=== PATIENT | male | born 1990 | race Two or more races ===

== ENCOUNTER 2020-02-22 21:42 | Emergency (ER) | payer OTHER ==
[2020-02-22] MEDS ORDERED: ASPIRIN 81 MG CHEWABLE TABLETS PO ONE (21:50)
--- NOTE | 2020-02-22 21:50 | PDOC ---
Rapid Medical Evaluation Time Seen by Provider: 02/22/20 21:46 Medical Evaluation: 02/22/20 21:47 I have performed a brief in-person evaluation of this patient. CC: chest pain s/p crack cocaine use; PMHx- schizophrenia PE: HR-55. Regular HR. No m/r/g. Lungs CTAB. Orders: cardiac w/u Patient will proceed to ED for further evaluation. Discharge Disposition - Diagnosis Chest pain - Referrals - Patient Instructions - Post Discharge Activity
[2020-02-22 21:51] VITALS: TEMP 98.5; BMI 20.5
--- NOTE | 2020-02-22 22:22 | PDOC ---
History of Present Illness - General Chief Complaint: Chest Pain Stated Complaint: CHEST PAIN Time Seen by Provider: 02/22/20 21:46 History Source: Patient Exam Limitations: No Limitations - History of Present Illness Initial Comments: 02/22/20 22:21 29yM w PMHx schizophrenia, polysubstance abuse (cocaine, THC, tobacco) presenting w 2wk persistent mild R chest tenderness. Not associated w exertion/position. Didn't take any meds for symptoms. Last used drugs yesterday. Denies fever, cough, n/v, SOB, HI/SI, hallucinations Past History - Medical History Allergies/Adverse Reactions: Allergies Allergy/AdvReac Type Severity Reaction Status Date / Time No Known Allergies Allergy Verified 02/22/20 21:51 COPD: No Psychiatric Problems: Yes (SCHIZOPHRENIA) - Psycho-Social/Smoking History Smoking History: Current every day smoker Number of Cigarettes Smoked Daily: 10 Information on smoking cessation initiated: Yes - Substance Abuse Hx (Audit-C & DAST Scrn) How often the patient has a drink containing alcohol: 2-3 times / week Number of drinks the patient has on a typical day: 1 or 2 How often the patient has six or more drinks on one occasion: Daily or almost daily Score: In Men: 4 or > Positive; In Women: 3 or > Positive: 7 Screen Result (Pos requires Nsg. Audit-10AR): Positive In the last yr the pt used illegal drug/Rx for NonMed reason: Yes Score: Yes response is considered Positive: 1 Screen Result (Positive result requires Nsg. DAST-10): Positive Review of Systems - Review of Systems Constitutional: No: Chills, Fever HEENTM: No: Eye Pain, Nose Congestion Respiratory: No: Cough, Shortness of Breath Cardiac (ROS): Yes: Chest Pain. No: Palpitations ABD/GI: No: Constipated, Diarrhea : No: Burning, Dysuria Musculoskeletal: No: Back Pain, Joint Pain Integumentary: No: Bruising, Flushing Neurological: No: Headache, Seizure Psychiatric: No: Anxiety, Depression Endocrine: No: Intolerance to Cold, Intolerance to Heat Hematologic/Lymphatic: No: Anemia, Blood Clots *Physical Exam - Vital Signs Last Vital Signs Temp Pulse Resp BP Pulse Ox 98.5 F 61 18 118/70 100 02/22/20 21:44 02/23/20 00:03 08/12/20 00:03 02/23/20 00:03 02/23/20 00:03 - Physical Exam General Appearance: Yes: Nourished, Appropriately Dressed. No: Apparent Distress HEENT: positive: EOMI, ESTHER, Normal Voice, Hearing Grossly Normal. negative: Scleral Icterus (R), Scleral Icterus (L) Respiratory/Chest: positive: Chest Tender (R chest), Lungs Clear, Normal Breath Sounds. negative: Respiratory Distress, Accessory Muscle Use, Labored Respiration, Crackles, Rales, Rhonchi, Stridor, Wheezing Cardiovascular: positive: Regular Rhythm, S1, S2, Bradycardia. negative: Murmur Gastrointestinal/Abdominal: positive: Normal Bowel Sounds, Flat, Soft. negative: Tender, Organomegaly Integumentary: positive: Normal Color, Warm. negative: Dry Neurologic: positive: Fully Oriented, Alert, Normal Mood/Affect, Normal Response, Responsive Heart Score/ECG Review - History History: Slightly suspicious - Electrocardiogram EKG: Normal - Age Age: </= 45 - Risk Factors Risk Factors Heart Score: No Hx Hypercholesterolemia, No Hx Hypertension, No Hx Diabetes, Yes Smoking History, No Positive family hx of cardiac disease, No Hx Obesity Based on the list above the patient has:: 1-2 risk factors - Troponin Troponin: </= normal limit - Score Heart Score - Total: 1 ED Treatment Course - LABORATORY CBC & Chemistry Diagram: 02/22/20 21:57 02/22/20 21:58 - ADDITIONAL ORDERS Additional order review: Laboratory Results 02/22/20 21:58 Sodium 142 Potassium 3.9 Chloride 108 H Carbon Dioxide 24 Anion Gap 10 BUN 12.8 Creatinine 0.9 Est GFR (CKD-EPI)AfAm 132.37 Est GFR (CKD-EPI)NonAf 114.21 Random Glucose 98 Calcium 8.5 Magnesium 2.2 Total Bilirubin 0.3 AST 15 ALT 18 Alkaline Phosphatase 65 Creatine Kinase 133 Troponin I < 0.02 Total Protein 6.1 L Albumin 3.4 02/22/20 21:57 RBC 4.37 MCV 88.8 MCHC 33.5 RDW 13.5 MPV 8.5 Neutrophils % 52.4 Lymphocytes % 36.6 Monocytes % 8.7 Eosinophils % 1.7 Basophils % 0.6 - Medications Given in the ED: ED Medications Discontinued Medications Generic Name Dose Route Start Last Admin Trade Name Freq PRN Reason Stop Dose Admin Aspirin 325 mg 02/22/20 21:50 02/22/20 22:45 Asa - PO 02/22/20 21:51 325 mg ONCE ONE Administration Medical Decision Making - Medical Decision Making 02/22/20 22:59 EKG - sinus bradycardia w arrhythmia, R axis deviation, no ST changes, HR 51, QTc 374 CXR - clear lung bolivar, normal cardiac size --- 29yM w PMHx schizophrenia, polysubstance abuse (cocaine, THC, tobacco) presenting w 2wk persistent mild R chest tenderness. Costochondritis. Low concern for ACS (neg trop, no ST changes) vs PNA (clear lungs) Given aspirin HEART 1 Called [facility] - they don't admit for cocaine, THC abuse, instead outpatient therapy w [facility] DC home w PCP, cards referrals, supportive care, outpatient Discharge - Discharge Information Problems reviewed: Yes Clinical Impression/Diagnosis: Costochondritis Condition: Improved Disposition: HOME - Follow up/Referral Referrals: Cortez Farrar MD [Staff Physician] - Dionisio Bran MD [Staff Physician] - - Patient Discharge Instructions Patient Printed Discharge Instructions: DI for Costochondritis Additional Instructions: Your workup did not show anything concerning Stop taking cocaine, cigarettes, and marijuana Take tylenol or ibuprofen if you have pain Please call [facility] for outpatient treatment for your drug abuse Follow up with the referred primary care Dr Farrar and accounts payable specialist Dr Bran - Post Discharge Activity
[2020-02-22 22:31] LABS: BASO % 0.6 % (0-2.0); EOS % 1.7 % (0-4.5); HEMATOCRIT 38.8 % (35.4-49); LYMPH % 36.6 % (8-40); MCH 29.7 pg (25.7-33.7); MCHC 33.5 g/dl (32.0-35.9); MEAN CELL VOLUME 88.8 fl (80-96); MEAN PLT VOLUME 8.5 fl (7.5-11.1); MONO % 8.7 % (3.8-10.2); NEUT % 52.4 % (42.8-82.8); PLATELET COUNT 197 K/MM3 (134-434); RBC 4.37 M/mm3 (4.00-5.60); RDW 13.5 % (11.9-15.9); WHITE BLOOD COUNT 6.4 K/mm3 (4.0-10.0)
[2020-02-22] MEDS ORDERED: ASPIRIN 81 MG CHEWABLE TABLETS ONE (22:32)
--- NOTE | 2020-02-22 22:43 | PDOC ---
Documentation entered by Olimpia Haile SCRIBE, acting as scribe for Jennifer Crews MD. Jennifer Crews MD: This documentation has been prepared by the deandraibeMic Ana, SCRIBE, under my direction and personally reviewed by me in its entirety. I confirm that the documentation accurately reflects all work, treatment, procedures, and medical decision making performed by me. Attending Attestation - Resident Resident Name: Jose Wall - ED Attending Attestation I have performed the following: I have examined & evaluated the patient, The case was reviewed & discussed with the resident, I agree w/resident's findings & plan, Exceptions are as noted - HPI HPI: 02/22/20 22:31 Patient is a 29 year old male with a significant past medical history of schizophrenia and substance abuse (crack) who presents to the ED with two weeks of right sided chest pain.. Patient denies: Allergies: NKDA 02/22/20 22:39 - Physicial Exam PE: 02/22/20 22:39 29 yo male p/w 2 weeks of right sided chest pain head ncat eyes taco eomi lungs cta b/l cvs [id number] abdomen nontendner extremities no edema skin warm and dry neuro axox3,ambulatory - Medical Decision Making 02/22/20 23:20 EKG is sinus bradycardia at 51 bpm troponin is negative cxr napd,normal cardiac silhouette imp musculoskeletal pain Discharge - Discharge Information Problems reviewed: Yes Clinical Impression/Diagnosis: Costochondritis Condition: Improved Disposition: HOME - Follow up/Referral Referrals: Cortez Farrar MD [Staff Physician] - Dionisio Bran MD [Staff Physician] - - Patient Discharge Instructions Patient Printed Discharge Instructions: DI for Costochondritis Additional Instructions: Your workup did not show anything concerning Stop taking cocaine, cigarettes, and marijuana Take tylenol or ibuprofen if you have pain Please call [facility] for outpatient treatment for your drug abuse Follow up with the referred primary care Dr Farrar and floor cleaner Dr Bran - Post Discharge Activity
[2020-02-22 23:01] LABS: ALBUMIN 3.4 g/dl (3.4-5.0); ALK PHOS 65 U/L (45-117); ANION GAP 10 MMOL/L (8-16); BILIRUBIN,TOTAL 0.3 mg/dL (0.2-1); BLOOD UREA NITROGEN 12.8 mg/dL (7-18); CALCIUM 8.5 mg/dL (8.5-10.1); CHLORIDE 108 mmol/L (98-107); CO2 24 mmol/L (21-32); CREATININE 0.9 mg/dL (0.55-1.3); GLUCOSE,RANDOM 98 mg/dL (74-106); MAGNESIUM 2.2 mg/dL (1.8-2.4); POTASSIUM 3.9 mmol/L (3.5-5.1); SGOT/AST 15 U/L (15-37); SGPT/ALT 18 U/L (13-61); SODIUM 142 mmol/L (136-145); TOT PROT 6.1 g/dl (6.4-8.2)
[2020-02-23 00:04] VITALS: BP 118/70; PULSE 61
--- NOTE | 2020-02-23 13:14 | EKG ---
Test Reason : Blood Pressure : / mmHG Vent. Rate : 051 BPM Atrial Rate : 051 BPM P-R Int : 134 ms QRS Dur : 084 ms QT Int : 406 ms P-R-T Axes : 074 090 071 degrees QTc Int : 374 ms SINUS BRADYCARDIA WITH SINUS ARRHYTHMIA RIGHTWARD AXIS BORDERLINE ECG NO PREVIOUS ECGS AVAILABLE Confirmed by MD TESSY, GARRY ([id number]) on 02/23/2020 1:14:09 PM Referred By: Confirmed By:GARRY STILL MD
== END 2020-02-23 00:06 | disposition home or self-care (01) ==
LOC: JER 21:42
DX: M94.0 Chondrocostal junction syndrome [Tietze] (principal)
CPT/HCPCS: 36415; 71046-TC-FY; 80053; 82550; 83735; 84484; 85025; 93005; 93010; 99285-25

== ENCOUNTER 2023-02-08 22:53 | Inpatient (IN) | payer OTHER ==
[2023-02-08 23:30] VITALS: BMI 20.5
[2023-02-09] MEDS ORDERED: IBUPROFEN 600 MG TABLET (FP) PO PRN (00:46)
[2023-02-09] MEDS ORDERED: COLLOIDAL OATMEAL 1 BAR EACH TP PRN (00:46)
[2023-02-09] MEDS ORDERED: NALOXONE HCL 0.4 MG/ML VIAL IM PRN (00:46)
[2023-02-09] MEDS ORDERED: AMMONIUM LACTATE 12% LOTION 225 GM BOTTLE TP PRN (00:46)
[2023-02-09] MEDS ORDERED: LOPERAMIDE HCL 2 MG CAPSULE PO PRN (00:46)
[2023-02-09] MEDS ORDERED: NALOXONE HCL (KLOXXADO) 8 MG SPRAY NS PRN (00:46)
[2023-02-09] MEDS ORDERED: MAG HYDROX/AL HYDROX/SIMETH 30 ML UNIT-DOSE CUP PO PRN (00:46)
[2023-02-09] MEDS ORDERED: guaiFENesin 600 MG TABLET.ER (FP) PO PRN (00:46)
[2023-02-09] MEDS ORDERED: BENZOCAINE/MENTHOL (CHLORASEPTIC ) LOZENGE MM PRN (00:46)
[2023-02-09] MEDS ORDERED: MAGNESIUM HYDROX 2400MG/30ML ORAL SUSPENSION 30 ML CUP PO PRN (00:46)
[2023-02-09] MEDS ORDERED: NICOTINE POLACRILEX 2 MG GUM BUC PRN (00:46)
[2023-02-09] MEDS ORDERED: POLYETHYLENE GLYCOL (HEALTHYLAX) 3350 17 GM PACKET PO PRN (00:46)
[2023-02-09] MEDS ORDERED: BENZONATATE 200 MG CAPSULE PO PRN (00:46)
[2023-02-09] MEDS ORDERED: IBUPROFEN 400 MG TABLET (FP) PO PRN (00:46)
[2023-02-09] MEDS ORDERED: ACETAMINOPHEN 325 MG TABLET (FP) PO PRN (00:46)
[2023-02-09] MEDS ORDERED: TUBERCULIN PPD 5 TU/0.1ML SYRINGE (IN PATIENT USE ONLY) ID ONE (01:15)
[2023-02-09] MEDS ORDERED: TUBERCULIN PPD 5 TU/0.1ML VIAL ID ONE (06:42)
[2023-02-09] MEDS ORDERED: NICOTINE 21 MG/24 HOURS TOPICAL PATCH TD SCH (10:00)
[2023-02-09] MEDS: PRENATAL VITAMINS W/ FOLIC ACID TABLET (FP) PO SCH (10:24)
[2023-02-09] MEDS ORDERED: MELATONIN 5 MG TABLETS PO SCH (22:00)
[2023-02-09] MEDS ORDERED: THIAMINE HCL 100 MG TABLET (FP) PO SCH (22:00)
[2023-02-10 07:17] VITALS: BP 126/82; PULSE 63; RESP 18; TEMP 97.1
[2023-02-10] MEDS ORDERED: NICOTINE 21 MG/24 HOURS TOPICAL PATCH TD PRN (08:47)
[2023-02-10] MEDS: PRENATAL VITAMINS W/ FOLIC ACID TABLET (FP) PO SCH (09:57)
[2023-02-10 11:00] LABS: ALBUMIN 3.2 g/dl (3.4-5.0)
[2023-02-10 11:01] LABS: BLOOD UREA NITROGEN 12.4 mg/dL (7-18); CALCIUM 8.8 mg/dL (8.5-10.1); HEMATOCRIT 37.5 % (35.4-49); HEMOGLOBIN 13.1 GM/dL (11.7-16.9); MCH 29.1 pg (25.7-33.7); MCHC 34.9 g/dl (32.0-35.9); MEAN CELL VOLUME 83.4 fl (80-96); MEAN PLT VOLUME 8.5 fl (7.5-11.1); PLATELET COUNT 212 10^3/uL (134-434); RDW 14.1 % (11.9-15.9)
[2023-02-10 11:03] LABS: CREATININE 0.9 mg/dL (0.55-1.3); TOT PROT 6.1 g/dl (6.4-8.2)
[2023-02-10 11:05] LABS: BILIRUBIN,TOTAL 0.2 mg/dL (0.2-1)
== END 2023-02-10 14:55 | disposition left against medical advice (07) | DRG 770 ==
LOC: YASAS 22:53 → Y3E 02-09 00:55
PROVIDERS: ADMIT Allergy & Immunology; ATTEND Psychiatry & Neurology Pain Medicine
PROC: HZ42ZZZ Group Counseling for Substance Abuse Treatment, Cognitive-Behavioral (ICD-10-PCS; principal; 2023-02-09)
DX: F14.20 Cocaine dependence, uncomplicated (principal); F12.20 Cannabis dependence, uncomplicated; F17.210 Nicotine dependence, cigarettes, uncomplicated; Z56.0 Unemployment, unspecified; Z59.00 Homelessness unspecified
CPT/HCPCS: 36415; 80053; 85027; 86780; 87635; 93005; 93010

== ENCOUNTER 2024-04-14 09:03 | Inpatient (IN) | payer OTHER ==
[2024-04-14 09:30] VITALS: BMI 21.1
[2024-04-14] MEDS ORDERED: ACETAMINOPHEN 325 MG TABLET (FP) PO PRN (09:36)
[2024-04-14] MEDS ORDERED: MAGNESIUM HYDROX 2400MG/30ML ORAL SUSPENSION 30 ML CUP PO PRN (09:36)
[2024-04-14] MEDS ORDERED: guaiFENesin 600 MG TABLET.ER (FP) PO PRN (09:36)
[2024-04-14] MEDS ORDERED: BENZONATATE 200 MG CAPSULE PO PRN (09:36)
[2024-04-14] MEDS ORDERED: MAG HYDROX/AL HYDROX/SIMETH 30 ML UNIT-DOSE CUP PO PRN (09:36)
[2024-04-14] MEDS ORDERED: P-EPHED 60MG/TRIPROLIDI 2.5MG TABLET PO PRN (09:36)
[2024-04-14] MEDS ORDERED: POLYETHYLENE GLYCOL (HEALTHYLAX) 3350 17 GM PACKET PO PRN (09:36)
[2024-04-14] MEDS ORDERED: BENZOCAINE/MENTHOL (CHLORASEPTIC ) LOZENGE MM PRN (09:36)
[2024-04-14] MEDS ORDERED: NICOTINE POLACRILEX 2 MG GUM BUC PRN (09:36)
[2024-04-14] MEDS ORDERED: NICOTINE POLACRILEX 2 MG LOZENGE BC PRN (09:36)
[2024-04-14] MEDS ORDERED: IBUPROFEN 400 MG TABLET (FP) PO PRN (09:36)
[2024-04-14] MEDS ORDERED: LOPERAMIDE HCL 2 MG CAPSULE PO PRN (09:36)
[2024-04-14] MEDS ORDERED: PRENATAL VITAMINS W/ FOLIC ACID TABLET (FP) PO ONE (10:11)
[2024-04-14] MEDS: PRENATAL VITAMINS W/ FOLIC ACID TABLET (FP) PO SCH (10:14)
[2024-04-14 11:31] VITALS: RESP 18
[2024-04-14] MEDS ORDERED: TUBERCULIN PPD 5 TU/0.1ML VIAL ID ONE (15:03)
[2024-04-14] MEDS: hydrOXYzine PAMOATE 25 MG CAPSULE (FP) PO PRN (19:09)
[2024-04-14] MEDS: MELATONIN 5 MG TABLETS PO SCH (21:03)
[2024-04-14] MEDS: IBUPROFEN 600 MG TABLET (FP) PO PRN (21:03)
[2024-04-14] MEDS: THIAMINE 100 MG TABLET PO SCH (21:03)
[2024-04-15 15:03] LABS: HEMATOCRIT 40.5 % (35.4-49); HEMOGLOBIN 13.6 GM/dL (11.7-16.9); MCH 29.7 pg (25.7-33.7); MCHC 33.5 g/dl (32.0-35.9); MEAN CELL VOLUME 88.6 fl (80-96); MEAN PLT VOLUME 8.7 fl (7.5-11.1); PLATELET COUNT 188 10^3/uL (134-434); RBC 4.57 M/mm3 (4.00-5.60); RDW 13.4 % (11.9-15.9); WHITE BLOOD COUNT 5.4 K/mm3 (4.0-10.0)
[2024-04-15 15:43] LABS: POTASSIUM 4.3 mmol/L (3.5-5.1)
[2024-04-15 15:55] LABS: ALBUMIN 3.7 g/dl (3.4-5.0); BLOOD UREA NITROGEN 14.4 mg/dL (7-18); CALCIUM 9.2 mg/dL (8.5-10.1)
[2024-04-15 15:59] LABS: CREATININE 0.8 mg/dL (0.55-1.3)
[2024-04-15 16:00] LABS: BILIRUBIN,TOTAL 0.9 mg/dL (0.2-1); TOT PROT 6.4 g/dl (6.4-8.2)
[2024-04-16 07:04] VITALS: BP 135/89; PULSE 82; TEMP 97.6
[2024-04-16 13:01] LABS: PH,URINE 6.5 (5.0-8.0); URINE APPEARANCE CLEAR; URINE BILIRUBIN NEGATIVE (NEGATIVE); URINE COLOR YELLOW; URINE GLUCOSE (UA) NEGATIVE (NEGATIVE); URINE KETONE NEGATIVE (NEGATIVE); URINE LEUK ESTERASE NEGATIVE (NEGATIVE); URINE NITRITE NEGATIVE (NEGATIVE); URINE PROTEIN NEGATIVE (NEGATIVE); URINE UROBILINOGEN 0.2 mg/dL (0.2-1.0)
[2024-04-16] MEDS ORDERED: NALOXONE (NYS OPIOID OVERDOSE PROGRAM) 4 MG/0.1 ML SPRAY NS PRN (15:01)
[2024-04-23] MEDS ORDERED: fluPHENAZine DECANOATE 125 MG/5ML VIAL IM ONE (14:00)
== END 2024-04-16 14:57 | disposition home or self-care (01) | DRG 772 ==
LOC: YASAS 09:03 → Y3NR 10:15 → Y5N 11:08
PROVIDERS: ADMIT Psychiatry & Neurology Pain Medicine; ATTEND Psychiatry & Neurology Pain Medicine
PROC: HZ42ZZZ Group Counseling for Substance Abuse Treatment, Cognitive-Behavioral (ICD-10-PCS; principal; 2024-04-14)
DX: F14.20 Cocaine dependence, uncomplicated (principal); F12.20 Cannabis dependence, uncomplicated; F17.210 Nicotine dependence, cigarettes, uncomplicated; F25.9 Schizoaffective disorder, unspecified; Z56.0 Unemployment, unspecified; Z59.00 Homelessness unspecified
CPT/HCPCS: 36415; 80053; 80305; 80307; 81003; 85027; 86780; 87811; 93005; 93010